=== PATIENT | male | born 1985 | race Hispanic/Latino ===

== ENCOUNTER 2017-10-05 23:30 | Emergency (ER) | payer SELFPAY ==
[2017-10-06 01:05] LABS: Anion Gap 10 mmol/L (10-20); BUN (Urea Nitrogen) 6 mg/dL (8.9-20.6); Calc. Creatinine Clearance 0 mL/min (70-130); Calcium 8.5 mg/dL (7.8-10.44); Carbon Dioxide 23 mmol/L (22-29); Chloride 98 mmol/L (98-107); Estimated GFR-MDRD 86; Potassium 3.4 mmol/L (3.5-5.1); Sodium 128 mmol/L (136-145)
[2017-10-06 01:07] LABS: Glucose 572 mg/dL (70-105)
== END 2017-10-06 04:47 | disposition home or self-care (01) ==
LOC: ERS 23:30
DX: E10.9 Type 1 diabetes mellitus without complications (principal); Z91.14 Patient's other noncompliance with medication regimen; Z79.84 Long term (current) use of oral hypoglycemic drugs
CPT/HCPCS: 36415; 36416; 80048; 94760; 96360; 96361